=== PATIENT | female | born 2000 | race African-American/Black ===

== ENCOUNTER 2019-07-28 05:00 | Inpatient (IN) ==
[2019-07-28] MEDS ORDERED: MEPERIDINE 50 MG/1 ML VIAL IV PRN (05:09)
[2019-07-28] MEDS ORDERED: BUTORPHANOL 2 MG/ML VIAL IV PRN (05:09)
[2019-07-28] MEDS ORDERED: ONDANSETRON 4 MG/2 ML VIAL IV PRN (05:09)
[2019-07-28] MEDS ORDERED: AMPICILLIN INJ 2,000 MG in SODIUM CHLORIDE 0.9% 100 ML IV ONE (05:22)
[2019-07-28] MEDS ORDERED: OXYTOCIN/LR 20 UNIT/1,000 ML BAG IV SCH (05:30)
[2019-07-28] MEDS: LACTATED RINGERS 1,000 ML IV SCH ×2 (05:40→19:35)
[2019-07-28 06:52] LABS: Albumin 2.7 G/DL (3.4-5.0); Bilirubin,Total 0.6 MG/DL (0.2-1.0); Calcium 8.4 MG/DL (8.5-10.1); Osmolality,Calculated 272.5 MOS/KG (273-304); Total Protein 6.9 G/DL (6.4-8.3)
[2019-07-28 07:07] LABS: Basophils % 0.2 % (0.0-0.8); Eosinophils # 0.1 10*3/uL (0.0-0.87); Hematocrit 27.3 VOL% (35.7-47.0); Hemoglobin 8.8 GM/DL (12.0-16.0); Immature Granulocytes % 1.2 %; Lymphocytes # 1.9 10*3/uL (1.4-4.0); Lymphocytes % 23.3 % (21.3-54.2); Mean Corpuscular HGB Conc 32.2 GM/DL (32-36); Mean Corpuscular Volume 71.3 FL (87-102); Mean Platelet Volume 9.2 FL (9.6-12.0); Monocytes % 10.4 % (1.7-12.7); Neutrophils % 63.9 % (38.7-73.9); Platelet Count 333 T/CUMM (130-400); Red Blood Count 3.83 MC/CUMM (3.8-5.5); Red Cell Distribution Width 17.8 % (9.3-17.3); White Blood Count 8.1 T/CUMM (4-12)
[2019-07-28 07:10] LABS: Hypochromasia 1+; Microcytosis Slight; Platelet Estimate Adequate
[2019-07-28] MEDS ORDERED: DINOPROSTONE VAG GEL 10 MG SYRINGE VAG ONE ×2 (08:37→10:11)
[2019-07-28] MEDS: AMPICILLIN INJ 1,000 MG in SODIUM CHLORIDE 0.9% 100 ML IV SCH ×3 (10:04→19:22)
[2019-07-29] MEDS: LACTATED RINGERS 1,000 ML IV SCH (05:59)
[2019-07-29] MEDS ORDERED: OXYTOCIN/LR 20 UNIT/1,000 ML BAG IV SCH (06:00)
[2019-07-29] MEDS: AMPICILLIN INJ 1,000 MG in SODIUM CHLORIDE 0.9% 100 ML IV SCH (06:05)
[2019-07-29] MEDS ORDERED: FAMOTIDINE 20 MG/2 ML VIAL IV ONE (08:25)
[2019-07-29] MEDS ORDERED: CITRIC ACID/SODIUM CITRATE 30 ML UDCUP PO ONE (08:25)
[2019-07-29] MEDS ORDERED: ceFAZolin 1,000 MG in SYRINGE 1 EACH IV ONE (09:00)
[2019-07-29] MEDS ORDERED: ROPIVACAINE 0.5% 30 ML VIAL ONE (09:01)
[2019-07-29] MEDS ORDERED: DEXAMETHASONE 4 MG/1 ML VIAL ONE (09:01)
[2019-07-29] MEDS ORDERED: OXYTOCIN 10 UNIT/ML VIAL IM ONE (09:01)
[2019-07-29] MEDS ORDERED: OXYTOCIN/LR 30 UNIT/1,000 ML BAG IV ONE (09:01)
[2019-07-29] MEDS ORDERED: ceFAZolin 2,000 MG in PREMIX 1 EACH IV ONE (09:04)
[2019-07-29] MEDS ORDERED: MAGNESIUM HYDROXIDE SUSP 30 ML UDCUP PO PRN (11:45)
[2019-07-29] MEDS ORDERED: ONDANSETRON 4 MG/2 ML VIAL IV PRN (11:45)
[2019-07-29] MEDS ORDERED: OXYTOCIN/LR 20 UNIT/1,000 ML BAG IV ONE (11:45)
[2019-07-29] MEDS ORDERED: ACETAMINOPHEN 325 MG TABLET PO PRN (11:45)
[2019-07-29] MEDS ORDERED: RHO(D) IMMUNE GLOBULIN 300 MCG SYRINGE IM ONE (11:45)
[2019-07-29] MEDS ORDERED: SIMETHICONE CHEW 80 MG TABLET PO PRN (11:45)
[2019-07-29] MEDS ORDERED: LACTATED RINGERS 1,000 ML IV SCH (12:00)
[2019-07-29] MEDS ORDERED: ceFAZolin 1,000 MG in SYRINGE 1 EACH IV SCH (12:00)
[2019-07-29] MEDS ORDERED: PHENYLEPHRINE 1 MG/10 ML SYRINGE IV ONE (12:04)
[2019-07-29] MEDS ORDERED: fentaNYL 100 MCG/2 ML VIAL ONE (12:05)
[2019-07-29] MEDS ORDERED: BUPIVACAINE SPINAL 0.75% 2 ML AMP SPINAL ONE (12:06)
[2019-07-29] MEDS ORDERED: MORPHINE 10 MG/10 ML VIAL ONE (12:06)
[2019-07-29 12:32] LABS: Apearance,Urine CLEAR (Clear); Bilirubin,Urine Negative (Negative); Blood, Urine Negative (Negative); Glucose,Urine (UA) Negative (Negative); Ketones,Urine 20 mg/dL (Negative); Mucus,Urine Occasional /LPF (Occasional); Nitrite,Urine Negative (Negative); Protein,Urine Negative; RBC,Urine <1 /HPF (0-4); Squamous Epithelial Cell,Urine Occasional /HPF (0-10); Urine Color Yellow (Yellow); Urine Specific Gravity 1.014 (1.001-1.035); Urine Urobilinogen < 2.0 EU/DL (0.2-1.0); WBC,Urine 4 /HPF (0-6)
[2019-07-29] MEDS ORDERED: diphenhydrAMINE 50 MG/1 ML VIAL IV PRN (15:04)
[2019-07-29] MEDS ORDERED: HYDROmorphone 2 MG/1 ML VIAL IV PRN (15:04)
[2019-07-29 20:24] LABS: Basophils % 0.2 % (0.0-0.8); Hematocrit 26.6 VOL% (35.7-47.0); Hemoglobin 8.5 GM/DL (12.0-16.0); Immature Granulocytes % 0.5 %; Immature Granulocytes Absolute 0.05 #; Lymphocytes # 1.2 10*3/uL (1.4-4.0); Lymphocytes % 10.9 % (21.3-54.2); Mean Corpuscular Volume 71.9 FL (87-102); Monocytes % 8.5 % (1.7-12.7); Neutrophils % 79.9 % (38.7-73.9); Platelet Count 275 T/CUMM (130-400); Red Cell Distribution Width 17.8 % (9.3-17.3)
[2019-07-29] MEDS: ceFAZolin 1,000 MG in SYRINGE 1 EACH IV SCH (20:55)
[2019-07-29] MEDS: DOCUSATE SODIUM 100 MG CAPSULE PO SCH (23:20)
[2019-07-30] MEDS: ceFAZolin 1,000 MG in SYRINGE 1 EACH IV SCH (04:11)
[2019-07-30] MEDS ORDERED: diphenhydrAMINE 2% CREAM 28 GM TUBE TOP PRN (04:47)
[2019-07-30] MEDS ORDERED: diphenhydrAMINE CAP 25 MG CAPSULE PO PRN (05:34)
[2019-07-30 06:07] LABS: Basophils % 0.2 % (0.0-0.8); Eosinophils % 0.4 % (0.00-10.9); Hematocrit 25.9 VOL% (35.7-47.0); Hemoglobin 8.4 GM/DL (12.0-16.0); Immature Granulocytes % 0.7 %; Immature Granulocytes Absolute 0.07 #; Lymphocytes # 1.4 10*3/uL (1.4-4.0); Lymphocytes % 13.6 % (21.3-54.2); Mean Corpuscular HGB Conc 32.4 GM/DL (32-36); Mean Corpuscular Volume 70.4 FL (87-102); Monocytes % 8.9 % (1.7-12.7); Neutrophils % 76.2 % (38.7-73.9); Platelet Count 285 T/CUMM (130-400); Red Blood Count 3.68 MC/CUMM (3.8-5.5); Red Cell Distribution Width 17.8 % (9.3-17.3); White Blood Count 9.9 T/CUMM (4-12)
[2019-07-30] MEDS: MULTIVITAMIN (PRENATAL) TABLET PO SCH (09:37)
[2019-07-30] MEDS: DOCUSATE SODIUM 100 MG CAPSULE PO SCH ×3 (09:37→21:34)
[2019-07-30] MEDS: METOCLOPRAMIDE 10 MG TABLET PO SCH ×2 (09:37→17:56)
[2019-07-30] MEDS: IBUPROFEN 800 MG TABLET PO PRN ×2 (13:25→22:21)
[2019-07-31] MEDS: METOCLOPRAMIDE 10 MG TABLET PO SCH ×2 (05:38→07:55)
[2019-07-31 09:37] VITALS: BP 107/53
[2019-07-31] MEDS: IBUPROFEN 800 MG TABLET PO PRN (10:03)
[2019-07-31] MEDS: DOCUSATE SODIUM 100 MG CAPSULE PO SCH (10:03)
[2019-07-31] MEDS: MULTIVITAMIN (PRENATAL) TABLET PO SCH (10:03)
== END 2019-07-31 13:15 | disposition home or self-care (01) | DRG 540 ==
LOC: N.LD 05:00 → N.OB 07-29 17:10
PROVIDERS: ADMIT Obstetrics & Gynecology; ATTEND Obstetrics & Gynecology
PROC: LDCSECT (ICD-10-PCS; 2019-07-29 10:00)